=== PATIENT | male | born 1970 | race Caucasian/White ===

== ENCOUNTER 2021-02-08 13:22 | Observation (INO) ==
[2021-02-08] MEDS ORDERED: MORPHINE 4 MG/1 ML VIAL IV STA (16:52)
[2021-02-08] MEDS ORDERED: ONDANSETRON 4 MG/2 ML VIAL IV STA (16:52)
[2021-02-08 17:17] LABS: Basophils % 0.1 % (0.0-0.8); Eosinophils # 0.2 10*3/uL (0.0-0.87); Eosinophils % 2.2 % (0.00-10.9); Hematocrit 39.3 VOL% (42.0-52.0); Hemoglobin 12.4 GM/DL (14.0-18.0); Immature Granulocytes % 1.4 %; Immature Granulocytes Absolute 0.13 #; Lymphocytes # 1.2 10*3/uL (1.4-4.0); Lymphocytes % 13.5 % (21.2-54.2); Mean Corpuscular HGB Conc 31.6 GM/DL (32-36); Mean Corpuscular Volume 96.3 FL (87-102); Monocytes % 9.9 % (1.7-12.7); Neutrophils % 72.9 % (38.7-73.9); Platelet Count 229 T/CUMM (130-400); Red Blood Count 4.08 MC/CUMM (3.8-5.5); Red Cell Distribution Width 13.2 % (9.3-17.3); White Blood Count 9.2 T/CUMM (4-12)
[2021-02-08 17:36] LABS: Albumin 2.4 G/DL (3.4-5.0); Bilirubin,Total 0.4 MG/DL (0.2-1.0); Calcium 8.8 MG/DL (8.5-10.1); Osmolality,Calculated 275.7 MOS/KG (273-304); Potassium 4.5 MMOL/L (3.5-5.1); Total Protein 6.6 G/DL (6.4-8.2)
[2021-02-08] MEDS ORDERED: VANCOMYCIN INJ 1,000 MG in SODIUM CHLORIDE 0.9% 250 ML IV STA (17:59)
[2021-02-08 18:22] LABS: Sedimentation Rate-Westergren 45 MM/HR (0-20)
[2021-02-08] MEDS ORDERED: hydrALAZINE 20 MG/1 ML VIAL IV PRN (18:47)
[2021-02-08] MEDS ORDERED: DEXTROSE 50% 25 GM/50 ML VIAL IV PRN (18:47)
[2021-02-08] MEDS ORDERED: guaiFENesin/DM ER 600-30 MG TABLET PO PRN (18:47)
[2021-02-08] MEDS ORDERED: diphenhydrAMINE CAP 25 MG CAPSULE PO PRN (18:47)
[2021-02-08] MEDS ORDERED: ALUMINUM/MAGNES/SIMETH MAX STR 30 ML UDCUP PO PRN (18:47)
[2021-02-08] MEDS ORDERED: ZALEPLON 5 MG CAPSULE PO PRN (18:47)
[2021-02-08] MEDS ORDERED: GLUCAGON 1 MG VIAL IM PRN (18:47)
[2021-02-08] MEDS ORDERED: NICOTINE 21 MG/24 HR PATCH TRANSDERM PRN (18:47)
[2021-02-08] MEDS ORDERED: ONDANSETRON 4 MG/2 ML VIAL IV PRN (18:47)
[2021-02-08] MEDS ORDERED: AZITHROMYCIN INJ 500 MG in SODIUM CHLORIDE 0.9% 250 ML IV SCH (19:00)
[2021-02-08] MEDS: ALBUTEROL/IPRATROPIUM 3 ML NEB RESP TX SCH (19:24)
[2021-02-08] MEDS ORDERED: cefTRIAXone 1,000 MG in SYRINGE 10 EACH IV SCH (20:00)
[2021-02-08] MEDS ORDERED: ENOXAPARIN 40 MG/0.4 ML SYRINGE SUBCUT SCH (21:00)
[2021-02-08] MEDS: DOCUSATE SODIUM 100 MG CAPSULE PO SCH (21:02)
[2021-02-08] MEDS: SODIUM CHLORIDE 0.9% 1,000 ML IV SCH (21:04)
[2021-02-08] MEDS ORDERED: VANCOMYCIN INJ 1,500 MG in SODIUM CHLORIDE 0.9% 500 ML IV ONE (22:00)
[2021-02-08] MEDS: MORPHINE 4 MG/1 ML VIAL IV PRN (22:59)
[2021-02-09] MEDS: ALBUTEROL/IPRATROPIUM 3 ML NEB RESP TX SCH ×3 (02:24→13:05)
[2021-02-09] MEDS: MORPHINE 4 MG/1 ML VIAL IV PRN ×3 (04:23→20:01)
[2021-02-09 05:23] LABS: Basophils % 0.4 % (0.0-0.8); Eosinophils # 0.2 10*3/uL (0.0-0.87); Eosinophils % 2.3 % (0.00-10.9); Hemoglobin 12.4 GM/DL (14.0-18.0); Immature Granulocytes % 1.5 %; Immature Granulocytes Absolute 0.11 #; Lymphocytes # 1.5 10*3/uL (1.4-4.0); Lymphocytes % 19.8 % (21.2-54.2); Mean Corpuscular HGB Conc 30.2 GM/DL (32-36); Mean Corpuscular Volume 101.2 FL (87-102); Monocytes % 9.6 % (1.7-12.7); Neutrophils % 66.4 % (38.7-73.9); Platelet Count 217 T/CUMM (130-400); Red Blood Count 4.05 MC/CUMM (3.8-5.5); Red Cell Distribution Width 13.2 % (9.3-17.3); White Blood Count 7.4 T/CUMM (4-12)
[2021-02-09 05:45] LABS: Osmolality,Calculated 275.7 MOS/KG (273-304); Potassium 4.1 MMOL/L (3.5-5.1)
[2021-02-09] MEDS ORDERED: VANCOMYCIN INJ 2,000 MG in SODIUM CHLORIDE 0.9% 500 ML IV SCH (09:00)
[2021-02-09] MEDS ORDERED: PANTOPRAZOLE 40 MG TABLET PO SCH (09:00)
[2021-02-09] MEDS: DOCUSATE SODIUM 100 MG CAPSULE PO SCH (09:40)
[2021-02-09] MEDS ORDERED: DIAZEPAM 10 MG/2 ML SYRINGE IV ONE (10:20)
[2021-02-09] MEDS ORDERED: GABAPENTIN 100 MG CAPSULE PO SCH (15:00)
[2021-02-09] MEDS: SODIUM CHLORIDE 0.9% 1,000 ML IV SCH (17:01)
[2021-02-09 20:08] VITALS: BP 130/70
[2021-02-09] MEDS ORDERED: traZODone 50 MG TABLET PO SCH (21:00)
[2021-02-10] MEDS ORDERED: OLMESARTAN 20 MG TABLET PO SCH (09:00)
[2021-02-10] MEDS ORDERED: amLODIPine 10 MG TABLET PO SCH (09:00)
[2021-02-10] MEDS ORDERED: MELOXICAM 7.5 MG TABLET PO SCH (09:00)
== END 2021-02-09 20:01 ==
LOC: EDBD → EDUNIT# → N.EDINP 13:22 → N.ED 13:22 → N.EDINP 19:36 → N.3E 19:45
PROVIDERS: ADMIT Internal Medicine; ATTEND Internal Medicine